=== PATIENT | male | born 1950 | race Caucasian/White ===

== ENCOUNTER 2017-08-17 08:47 | Day surgery (SDC) | payer MEDICARE, OTHER, SELFPAY ==
[2017-08-17 09:02] VITALS: BP 128/82; PULSE 69; RESP 18; TEMP 37; O2SAT 100; BMI 31.1
[2017-08-17] MEDS: SODIUM CHLORIDE 0.9% 1,000 ML 200 ML IV (09:23)
--- NOTE | 2017-08-17 09:35 | PM.HP.1 ---
History of Present Illness Date Patient Seen: 08/17/17 Time Patient Seen: 09:35 Chief complaint: colonoscopy 22531 Narrative: Patient is a gentleman here for screening colonoscopy. Five years ago he had a large polyp resected from a portion of his colon. No family history of colon cancer. Patient History Medical History History of benign neoplasm of colon (Resolved) Surgical History History of low anterior resection of rectum (Inactive) Family & Social History Family History: Reviewed 08/17/17 by Manuel Mariscal MD Social History: household members spouse Meds Home Medications Medication Instructions Recorded Confirmed Type No Known Home Medications 08/17/17 08/17/17 History Allergies Allergy/AdvReac Type Severity Reaction Status Date / Time No Known Drug Allergies Allergy Verified 08/17/17 08:55 Review of Systems Review of Systems All systems reviewed & are unremarkable except as noted in HPI and below Eyes Eyes: Reports requires corrective lenses Comments: Exam Vital Signs (past 8 hours): - 08/17/17 09:02 Temperature 98.6 F Pulse Rate 69 Respiratory Rate 18 Blood Pressure 128/82 H Pulse Oximetry 100 Oxygen Delivery Method Room Air Narrative Exam Narrative: Operative gentleman little overweight no apparent distress. His lungs are clear to auscultation. No rales or rhonchi. Heart regular rate and rhythm without murmur or gallop. Abdomen is protuberant soft nontender without mass. Infraumbilical vertical midline scar noted. No hernias appreciated nor masses. Alert and oriented x3. Assessment & Plan (1) Screening for colon cancer: Problem details: Patient had a low anterior resection for a large unresectable villous adenoma. Current visit: Yes Status: Acute Plan: Assessment/Plan Narrative: Patient here for colonoscopy. Last exam 5 years ago. I have discussed the procedure and the rationale with the patient including risks of bleeding, perforation which would necessitate a major operation, failure to find remove all lesions and the potential to tattoo. They appeared to understand and wished to proceed.
--- NOTE | 2017-08-17 09:44 | PM.PREOP ---
Pre-operative Note Interval Note Pre-op Check: History & Physical exam performed today H&P completed within 30 days and has changed as indicated here:: None ASA Class (for procedural sedation): I
[2017-08-17] MEDS: MIDAZOLAM 5 MG/5 ML VIAL IV (10:12)
[2017-08-17] MEDS: fentaNYL 250 MCG/5 ML INJ IV (10:13)
--- NOTE | 2017-08-17 10:21 | PM.OP.ENDO ---
Operative Date/Time/Diagnoses - Date of procedure: 08/17/17 Time of procedure: 10:22 Pre-op diagnosis: History of large villous adenoma post low anterior resection. Last exam was 5 years ago. Post-op diagnosis: same (A few diverticuli noted) Procedure & Clinicians Study performed: Colonoscopy Same procedure as scheduled: Yes Indications: Screening Surgeon: Manuel Mariscal Procedure Notes SCOAP/Timeout: Performed Procedure in detail: The patient was placed in the left lateral decubitus position and underwent IV sedation directed by the surgeon consisting of fentanyl and Versed. Digital exam was remarkable for being able to feel the anastomosis area. Prostate was flat. The scope was inserted and advanced through the rectum into the sigmoid, descending, transverse, and ascending colon.[I suspect there was very little sigmoid remaining. The anastomosis was clearly delineated. This appears to be a proximal and 2 distal side anastomosis. Both limbs were cannulated and were normal. I did note a few diverticuli in the left colon]. The cecum was reached identified by the ileocecal valve and the appendiceal opening. The ileocecal valve was successfully cannulated. The terminal ileum was normal in appearance. The scope was gradually brought out. No Polyps were found. The scope ultimately was retroflexed in the rectum. The appearance was normal. The scope was removed and the patient tolerated the procedure well Scope withdrawal time: 8.5 min Sedation minutes: 23 Findings: diverticulosis Specimen(s): none sent Complications: none Recommendations: Colonscopy in 5 years Plan for aftercare: Follow up: as needed Disposition: same day surgery
[2017-08-17 10:30] VITALS: BP 119/73; PULSE 59; RESP 16; TEMP 36.7; O2SAT 97
[2017-08-17 10:43] VITALS: BP 105/71; PULSE 59; RESP 18; TEMP 36.7; O2SAT 98
--- NOTE | 2017-08-17 10:58 | SUR.PHASEII ---
pt bypassed pacu awake on arrival. vss, belly soft, no nausea, tolerated fluids, dr foster to bedside- left when ready and left in stable condition.
== END 2017-08-17 10:55 | disposition home or self-care (01) ==
PROVIDERS: PCP Family Medicine; Visit Provider Specialist
PROC: 0DJD8ZZ Inspection of Lower Intestinal Tract, Via Natural or Artificial Opening Endoscopic (ICD-10-PCS; CPT 45378; principal; 2017-08-17 09:45)
DX: Z86.010 Personal history of colon polyps (principal); K57.30 Diverticulosis of large intestine without perforation or abscess without bleeding
CPT/HCPCS: G0105; 99152; 99153; J2250; J3010

== ENCOUNTER → 2017-10-21 10:33 | Outpatient (CLI) | payer MEDICARE, OTHER, SELFPAY ==
--- NOTE | 2017-10-21 | DI.CT.S_ITS ---
PROCEDURE: CT UE RT WO CON INDICATIONS: CHRONIC RIGHT SHOULDER PAIN TECHNIQUE: Noncontrast 1-1.5 mm thick sections acquired from the acromioclavicular joint to the inferior scapula, with coronal and sagittal reformatting. COMPARISON: None. FINDINGS: Image quality: Diagnostic. Bones: There are severe degenerative changes of the right glenohumeral joint with prominent joint space narrowing, bony remodeling, subchondral sclerosis, subchondral cystic change, and developing prominent inferior marginal osteophytes. Superior migration of the humeral head with respect to the glenoid is identified with near pseudoarticulation of the humeral head with the undersurface of the acromion. Moderate degenerative changes of the acromioclavicular joint are present. No suspicious osseous lesions are identified involving the imaged osseous structures of the right shoulder were included portions of the right thorax. Soft tissues: The soft tissues of the right shoulder appeared be within normal limits. No significant atrophy is appreciated involving the rotator cuff muscles. There likely is prominent thinning of the supraspinatus muscle, given prominent narrowing of the space between the humeral head and the acromion. There is a moderate sized glenohumeral joint effusion. No axillary lymphadenopathy is evident. The imaged portions of the right chest are within normal limits. IMPRESSION: 1. Severe degenerative changes of the glenohumeral joint. 2. Moderate degenerative changes of the acromioclavicular joint. 3. Glenohumeral joint effusion. 4. Prominent narrowing of the acromiohumeral is suspicious for supraspinatus injury. There is no corresponding atrophy of the supraspinatus muscle. MRI may be helpful for better characterization, if indicated. Dictated by: Aden Mcdonald M.D. on 10/21/2017 at 10:11 Approved by: Aden Mcdonald M.D. on 10/21/2017 at 10:15
== END ==
PROVIDERS: PCP Family Medicine; Visit Provider Orthopaedic Surgery
DX: M19.011 Primary osteoarthritis, right shoulder (principal); M25.511 Pain in right shoulder; M25.411 Effusion, right shoulder; G89.29 Other chronic pain
CPT/HCPCS: 73200

== ENCOUNTER → 2017-11-10 10:41 | Outpatient (CLI) | payer MEDICARE, OTHER, SELFPAY ==
[2017-11-10 10:50] LABS: Bacteria Urine None Seen; RBC Urine None Seen (0-5/HPF); WBC Urine None Seen (0-5/HPF)
[2017-11-10 11:43] LABS: Add Manual Diff / Slide Review NO; Basophils Percent Auto 0.5 % (0-2); Eosinophils Percent Auto 1.6 % (2-4); Hematocrit 45.2 % (41-53); Hemoglobin 15.5 g/dL (13.5-17.5); Lymphocytes Percent Auto 33.3 % (25-40); Mean Corpuscular HGB Conc 34.4 % (30-36); Mean Corpuscular Hemoglobin 31.5 PG (26-34); Mean Corpuscular Volume 91.5 fL (80-100); Monocytes Percent Auto 11.2 % (3-14); Neutrophils Absolute Auto 3200 /uL (3000-5900); Neutrophils Percent Auto 53.4 % (50-75); Platelet Count 218 X10^3/uL (150-400); Red Blood Cell Count 4.93 X10^6/uL (4.5-5.9); Red Cell Distribution Width 13.5 % (11.6-14.8); White Blood Cell Count 6.1 X10^3/uL (4.5-11.0)
[2017-11-10 11:46] LABS: Hemoglobin A1C% w Est Avg Glu 5.4 % (4.0-6.0)
[2017-11-10 11:59] LABS: Blood Urea Nitrogen 18 mg/dL (9-20); Calcium 8.7 mg/dL (8.4-10.2); Carbon Dioxide 30 mmol/L (22-32); Chloride 102 mmol/L (98-107); Estimated Glomerular Filt Rate > 60.0 mL/min (>60); Glucose 92 mg/dL (80-110); HEMOLYSIS < 15 (0-50); Potassium 4.3 mmol/L (3.4-5.1); Sodium 141 mmol/L (137-145)
[2017-11-10 12:05] LABS: Transferrin 244 mg/dL (206-381)
[2017-11-10 12:06] LABS: Appearance Urine UA CLEAR; Bilirubin Urine UA NEGATIVE (NEGATIVE); Color Urine UA YELLOW; Glucose Urine UA NEGATIVE (Normal); Ketones Urine UA NEGATIVE (NEGATIVE); Leukocyte Esterase Urine UA NEGATIVE (NEGATIVE); Nitrite Urine UA Negative (Negative); Occult Blood Urine UA NEGATIVE (Negative); Protein Urine UA NEGATIVE (Negative); Specific Gravity Urine UA <=1.005 (1.000-1.035); Urobilinogen Urine UA 0.2 E.U./dL (0.2); pH Urine UA 6.5 (4.5-8.0)
[2017-11-10 12:16] LABS: Culture Indicated Urine Cult Not Indicated; Urine Comments Microscopic Normal
== END ==
PROVIDERS: Family Provider Orthopaedic Surgery; PCP Family Medicine; Visit Provider Family Medicine
DX: Z01.818 Encounter for other preprocedural examination (principal); M25.511 Pain in right shoulder; D64.9 Anemia, unspecified; R73.9 Hyperglycemia, unspecified
CPT/HCPCS: 36415; 80048; 81001; 83036; 84466; 85025; 93005

== ENCOUNTER 2017-12-17 06:05 | Inpatient (IN) | payer MEDICARE, OTHER, SELFPAY ==
[2017-12-01 08:40] VITALS: BMI 31.7
[2017-12-17] VITALS (15 sets, daily range): BP systolic 99–139; BP diastolic 60–81; PULSE 60–68; RESP 7–24; TEMP 35.9–36.7; O2SAT 93–98; BMI 31.7
[2017-12-17] MEDS: ACETAMINOPHEN 325 MG TABLET 975 MG PO ×3 (06:50→20:29)
[2017-12-17] MEDS: LACTATED RINGERS 1,000 ML 42 ML IV (06:50)
[2017-12-17] MEDS: PREGABALIN 75 MG CAPSULE PO (06:50)
[2017-12-17] MEDS: CELECOXIB 200 MG CAPSULE PO (06:50)
--- NOTE | 2017-12-17 07:04 | DI.RAD.S_ITS ---
PROCEDURE: XR SHOULDER RT 1V INDICATIONS: prosthesis placement TECHNIQUE: 1 views of the shoulder were acquired. COMPARISON: [facility], CT, CT UE RT WO CON, 10/21/2017, 10:42. FINDINGS: Bones: Postoperative change is seen, with right shoulder arthroplasty. No acute abnormality is seen. Age-appropriate bony degenerative changes are seen. Soft tissues: No suspicious soft tissue calcifications. The visualized lung demonstrates an unremarkable appearance. IMPRESSION: Normal postoperative examination. Dictated by: Doroteo Ch M.D. on 12/17/2017 at 10:19 Approved by: Doroteo Ch M.D. on 12/17/2017 at 10:20
--- NOTE | 2017-12-17 07:43 | PC.NURSE ---
Day shift: Pt not on the AC unit at this time.
--- NOTE | 2017-12-17 07:45 | PM.PREOP ---
Pre-operative Note Interval Note Pre-op Check: Yes History & Physical Reviewed by Physician and Yes Exam Performed Changes: No
[2017-12-17] MEDS: MIDAZOLAM 2 MG/2 ML VIAL IV (07:46)
[2017-12-17] MEDS: fentaNYL 100 MCG/2 ML INJ 50 MCG IV ×4 (07:46→11:01)
--- NOTE | 2017-12-17 07:53 | P.OP_ITS ---
Operative Date/Time/Diagnoses Date of procedure: 12/17/17 Time of procedure: 10:05 Pre-op diagnosis: Right shoulder osteoarthritis Post-op diagnosis: same Procedure & Clinicians Procedure: Right total shoulder replacement Same procedure as scheduled: Yes Indications: The patient has had progressively worsening right shoulder pain with radiographic changes consistent with arthritis. Non-operative management has failed and the patient has requested total shoulder replacement. The risks, benefits and alternatives to surgery were discussed with the patient prior to proceeding. Risks discussed included, but were not limited to, failure to relieve pain, stiffness, infection, nerve damage, deep venous thrombosis, pulmonary embolism, stroke, coma, heart attack, permanent paralysis and , as well as the potential need for eventual revision of the prosthetic. Surgeon: Hermann Wheeler Housekeeping Manager: Tricia Schaefer Click Yes if Unassisted: No Anesthesia Type: General, Peripheral nerve block and Local Operative Notes Findings: Severe osteoarthritis with large osteophytes and biconcave Beckman B2 glenoid. Closure Type: primary Specimen(s): none sent Implants & Drains: Implants used in this procedure were manufactured by the [employer] and included a size 14 short stem humerus with a neutral neck and a 50 mm x 20 mm neutral humeral head. In addition a 50 mm all- polyethylene pegged E +glenoid was used. Applied: drain(s) and implant(s) Estimated Blood Loss (mL): 150 Blood products transfused: none Procedure in detail: The patient was seen in the pre-operative area, where the patient identified the right shoulder as the operative site and this was marked with my initials. The patient received pre-operative antibiotics, underwent an interscalene block, and was taken to the operating room and placed on the operative table in the supine position. After satisfactory anesthesia, a full ? time out? was performed. The patient was repositioned in the ?beach chair? position using a dedicated positioner. All pressure points were well padded, and the knees were slightly bent to prevent tension on the sciatic nerves. The right arm was prepared from the fingers to the base of the neck with ChloroPrep in the usual fashion and draped through sterile drapes. An approximately 15 cm incision was created, starting at the clavicle above the coracoid process and extended towards the deltoid insertion. The deltopectoral interval was used to access the shoulder. The cephalic vein was taken medially. A self retaining retractor was placed. The upper centimeter of the pectoralis major tendon was released. The ?three sisters? were identified and cauterized. The axillary nerve was palpated and protected throughout the case. The biceps was released from its groove and tenodesed over the top of the pectoralis major tendon. The subscapularis was released from the lesser tuberosity with a subscapularis peel and tagged for later repair. The shoulder was dislocated and a cutting guide was used for the proximal humeral osteotomy in 30 degrees of retroversion. A starter reamer was used followed by the cylindrical reamers. This continued in larger sizes in till cortical bite was achieved. Sequential broaching was then performed until a line to line fit with the reamer occurred. A proximal humeral protector was then placed. We then removed the self-retaining retractor and placed retractors to access the glenoid. The subscapularis was released with a ?360 degree release? with care being taken to protect the axillary nerve with the inferior portion of this procedure. The remnant of labrum and biceps stump were removed. The appropriate size reamer was chosen with the glenoid sizer, and the guide pin placed. The glenoid was appropriately reamed, with more reaming of the anterior rim to normalize the B2 glenoid.. The guide for the peripheral holes was used and the center hole enlarged. The trial glenoid was placed with good stability. We then cemented the final implant into place after irrigating the peg holes and drying them with thrombin-soaked Gelfoam. We returned our attention to the humerus, a trial humeral head was applied and a trial reduction performed. Stability was checked with 50% posterior translation with spontaneous reduction, 45? external rotation at the side with the subscapularis held on the repaired position and internal rotation to 70? in the ?scarecrow position?. This was felt to be satisfactory and the appropriate implants were opened. Five holes were drilled along the humeral osteotomy and #2 TiCron sutures placed for eventual subscapularis repair. The humeral prosthetic was impacted into the humerus. The humeral head was applied when the stem was still slightly proud and impacted to both seat the head and fully seat the stem. The joint was relocated one final time. The joint was irrigated and the subscapularis repaired to the previously placed sutures using Danny-Wallace sutures. The top of the subscapularis was closed to the leading edge of the supraspinatus with a figure of 8 #2 TiCron to close the rotator interval. A deep drain was placed and brought out supero-laterally. The deltopectoral interval was closed with interrupted 0 Vicryl. The subcutaneous layer was closed with 3-0 Vicryl, and the skin with a running 3-0 V-Lock suture and SteriStrips. An Aquacel Ag dressing was applied, the patient?s arm was placed in a sling, and the patient was taken to recovery having tolerated the procedure well. Complications: none Condition: stable Disposition: PACU Plan for aftercare: The patient will be maintained on a standard total shoulder replacement protocol with passive range of motion limited to 90 degrees forward flexion, 0 degrees external rotation at the side, 0 degrees abduction and internal rotation to the body. The patient will receive aspirin and sequential compression devices for DVT prophylaxis. The patient will be discharged home when safe for the home environment, likely tomorrow.
--- NOTE | 2017-12-17 08:04 | SUR.PREOP ---
Block start time [0746] . Monitoring initiated and maintained throughout procedure. Oxygen and medications given per anesthesiologist instructions. Patient remained stable throughout procedure, no adverse reactions noted. Block end time [0804].
--- NOTE | 2017-12-17 08:47 | SUR.OPER ---
Beach chair with Skip/Elyssa shoulder positioner. Lower body on padded OR bed. Head in foam padded head cradle, secured with straps. Non-operative arm secured <90 degrees abduction. Pillow under knees. Safety belt at thigh. Cloth tape over blanket over lower legs.
--- NOTE | 2017-12-17 08:48 | SUR.OPER ---
Beach chair with Schlein shoulder positioner. Lower body on padded OR bed. Head in foam padded head cradle, secured with straps. Non-operative arm secured <90 degrees abduction with strap. Pillow under knees. Safety belt at thigh. Cloth tape over blanket over lower legs.
[2017-12-17] MEDS: CEFAZOLIN 2 GM/100 ML FROZ.PIGGY IV ×2 (10:02→18:00)
[2017-12-17] MEDS: THROMBIN (BOVINE) 5,000 UNIT VIAL 5000 UNIT TOP (10:02)
[2017-12-17] MEDS: BUPIVACAINE 0.5% W/ EPI (PF) VIAL 30 ML INJ (10:06)
--- NOTE | 2017-12-17 11:01 | SUR.PHASEI ---
Report called to Krystin
--- NOTE | 2017-12-17 11:26 | SUR.PHASEI ---
Pt transferred to the floor. Report to Krystin. VS stable. IV saline locked. Inessa cdi. HV patent and emptied. Sling in place. Belongings bag x2 and cpap with patient. Dr. Wheeler notified pt c/o forearm pain, no new orders.
[2017-12-17] MEDS: LACTATED RINGERS 1,000 ML 125 ML IV ×2 (11:42→19:38)
--- NOTE | 2017-12-17 16:34 | PT.IIE ---
Addendum entered and electronically signed by Katie Shanks PT 12/17/17 18:41: This is to certify that I have reviewed this documentation and POC Original Note: Current Diagnoses Primary osteoarthritis, right shoulder (12/17/17) Surgery Performed Operation Date: 12/17/17 07:45 Actual Procedures p Total Shoulder Arthroplasty(Right) - Hermann Wheeler MD Surgical History (Last Updated 12/01/17 @ 09:08 by Roberta Richardson, RN) History of partial colectomy (Resolved 2010) Hx of cholecystectomy (Resolved 1999) Hx of appendectomy (Acute) Hx of left knee surgery (Acute) S/P right knee arthroscopy (Acute) History of low anterior resection of rectum (Inactive) Medical History (Last Updated 12/01/17 @ 09:08 by Roberta Richardson RN) Right shoulder pain (Chronic) Tubulovillous adenoma of colon (Resolved ~2010) Rosacea (Chronic 1994) Obstructive sleep apnea (Chronic 2001) Kidney stones (Resolved ~2015) Colon polyps (Acute ~2010) History of benign neoplasm of colon (Resolved) Physical Therapy Inpatient Evaluation/Re-Eval M1 PT/OT-IP Prior Functional Status Start: 12/17/17 17:06 Freq: NEEDED Status: Active Protocol: Document 12/17/17 16:34 (Rec: 12/17/17 17:38 [id number]) Medical Review Prior Functional Status Medical History Reviewed Yes Communication no deficits noted. Mobility and Gait Previous to shoulder surgery, pt reports independence with all mobilities. He describes himself as an avid hiker. Social History Household Members spouse Living Arrangements House Number of Floors (Floors) One Floor Number of Stairs To Enter/Railing? 1 step to enter Home Environment Standard Height Toilet Walk in Shower Built-In Shower Seat Home Equipment Hand Held Shower Employment Status Retired Additional Social History Comment Pt's Adrian will be availiable for 24/ assist. Ascending from toilet, there is a L ledge pt can push from if needed. M2 PT-IP Current Condition Start: 12/17/17 17:06 Freq: NEEDED Status: Active Protocol: Document 12/17/17 16:34 (Rec: 12/17/17 17:38 [id number]) Physical Therapy Current Condition Current Condition Evaluation Date 12/17/17 Treatment Diagnosis R TSA; difficulty walking. Onset Date 12/17/17 Precautions Shoulder Precautions Sling PROM Internal Rotation to Body No External Rotation No Abduction Forward Flexion to 90 degrees Pendulums Weight Bearing Status Weight Bearing Status Non-Weight Bearing Allowed Weight Bearing Amount (enter % R shoulder non weight bearing. or #) (%) M3 PT-IP Subjective Start: 12/17/17 17:06 Freq: NEEDED Status: Active Protocol: Document 12/17/17 16:34 (Rec: 12/17/17 17:38 [id number]) Subjective Physical Therapy Visit Type Type Initial Evaluation Visit Start Time 16:34 Visit Stop Time 17:06 Total Visit Minutes 32 Number of GALVANOMETER ASSEMBLER Visits 0 Physical Therapy Visit Comments Patient Comments Pt agreeable to mobilize with PT. Patient Goals Pt plans to d/c home with for assist. Therapy Pain Assessment Pain Present Pain Present Denied Pain M4 PT-IP Mobility and Gait Start: 12/17/17 17:06 Freq: NEEDED Status: Active Protocol: Document 12/17/17 16:34 (Rec: 12/17/17 17:38 [id number]) PT-Bed Mobility Assessment Supine to Sit Supine to Sit Independent Sit to Supine Sit to Supine Independent Scooting Scooting to Edge of Bed Independent PT-Transfer Assessment Sit to and From Stand Sit to and from Stand Standby Assistance Equipment Transfer Assistive Device None Gait Belt Orthotic/Prosthetic Devices or Brace: Yes Transfers Transfer Destination Bed Comments Mobility Comments Resting vitals 115/56, O2 98%, HR 62. Pt denies dizziness or nasea. Pt performs supine > sit indep and able to maintain precautions easily. Sit <> stand SBA no AD with L UE to rise. Standing march in place 20 steps completed SBA and no AD and pt continues to deny dizziness. Gait Assessment Gait Gait Assistance Required: Standby Assistance Distance (Feet) 200 Able to Maintain Weight Bearing Status Yes During Gait Assistive Devices Assistive Device Gait Belt Orthotic/Prosthetic Devices or Brace: Yes Gait Deviations General Gait Pattern Within Normal Limits Factors Limiting Gait Function Factors Limiting Gait Function Decreased Activity Tolerance Decreased Sensation Limited Range of Motion Comments Gait Comments Pt ambulated 200 ft SBA no AD. Gait within normal limits. No c/o of dizziness or nausea. Stair Climbing Assessment Evaluation Level of Assist On Stairs Standby Assistance Technique/Endurance Stair Climbing Direction Ascend and Descend Number of Steps Climbed 1 Query Text: Stair Climbing Set # Repetitions (reps) 2 Comments Stair Climbing Comments Pt able to up/down 1 platform step x2 SBA no AD, no LOB. PT-Balance Assessment Sitting Balance and Reactions Static Sitting Balance Ability Good Dynamic Sitting Balance Ability Good Standing Balance and Reactions Static Standing Balance Ability Good Dynamic Standing Balance Ability Good Device Used gait belt M5 PT-IP Objective Assessments Start: 12/17/17 17:06 Freq: NEEDED Status: Active Protocol: Document 12/17/17 16:34 (Rec: 12/17/17 17:38 [id number]) Orientation Orientation/Cognition Level of Alertness Alert Orientation Name Birthday Place Situation Language Function Ability No Deficits Noted Safety Awareness Decreased Safety Awareness Gross Range of Motion Upper Extremity ROM Assessment Right Impaired Strength Lower Extremity Strength Assessment Within Functional Limits Sensation Assessment Sensation Gross Sensation Right UE Impaired Sensation Description Numbness [place] Comments Sensation Comments Pt still describes numbness and tingling over the dorsum of thumb and forearm. M6 PT-IP Treatment Start: 12/17/17 17:06 Freq: NEEDED Status: Active Protocol: Document 12/17/17 16:34 (Rec: 12/17/17 17:38 [id number]) Physical Therapy Treatment Education Education Provided Precautions Weight Bearing Status Post-Op Packet Safety M7 PT-IP Assessment and Plan Start: 12/17/17 17:06 Freq: NEEDED Status: Active Protocol: Document 12/17/17 16:34 (Rec: 12/17/17 17:38 [id number]) PT Summary Assessment and Plan Potential Rehabilitation Potential Good Status of Condition at Evaluation Stable Summary Impairments ROM Strength Sensation Bed Mobility Transfers Gait Activity Tolerance Progress Towards Goals Progressing Toward Goals Assessment Summary Pt s/p R TSA with impaired mobility/difficulty walking. He was able to complete 200 ft ambulation SBA with no AD as well as up/down 1 platform step x2 SBA no AD. He denied dizziness or nausea this session. Recommend d/c to home with assist and f/u OP PT when pt is medically stable. Goals Bed Mobility Goal Independent Transfer Goal Independent Gait Goal Independent Gait Distance 300 Other Goals up/down platform step indep and no AD Days to Meet Goals 300 Frequency of Treatment Frequency Of Treatment Twice a Day Treatment Plan Physical Therapy Treatment Plan Bed Mobility Training Transfer Training Gait Training Therapeutic Exercise Balance Retraining Post Op Education Discharge Planning Hot or Cold Pack Neuromuscular Re-ed Coordination Retraining Manual Therapy Other Recommendations and Next Treatment ambulation and stair climbing. Focus Caregiver training Recommendations To Nursing Amount of Assist Needed Standby Assistance Discharge Recommendations PT Discharge Recommendations Home with Assistance Outpatient PT
[2017-12-17] MEDS: ASPIRIN EC 81 MG TABLET PO (20:30)
[2017-12-17] MEDS: OXYCODONE IR 5 MG TABLET PO (20:30)
[2017-12-17] MEDS: DOCUSATE 100 MG CAPSULE PO (20:30)
[2017-12-18] MEDS: OXYCODONE IR 5 MG TABLET PO ×3 (00:07→07:49)
[2017-12-18 01:05] VITALS: BP 112/73; PULSE 67; RESP 18; TEMP 36.7; O2SAT 98
[2017-12-18] MEDS: CEFAZOLIN 2 GM/100 ML FROZ.PIGGY IV (01:48)
[2017-12-18 03:45] VITALS: BP 133/67; PULSE 63; RESP 18; TEMP 36.4; O2SAT 97
[2017-12-18 05:57] LABS: Hematocrit 39.6 % (41-53); Hemoglobin 13.2 g/dL (13.5-17.5); Mean Corpuscular HGB Conc 33.4 % (30-36); Mean Corpuscular Volume 92.9 fL (80-100); Platelet Count 209 X10^3/uL (150-400); Red Blood Cell Count 4.26 X10^6/uL (4.5-5.9); Red Cell Distribution Width 13.5 % (11.6-14.8); White Blood Cell Count 17.2 X10^3/uL (4.5-11.0)
[2017-12-18 07:35] VITALS: BP 121/73; PULSE 66; RESP 24; TEMP 36.6; O2SAT 97
[2017-12-18] MEDS: ACETAMINOPHEN 325 MG TABLET 975 MG PO (08:41)
[2017-12-18] MEDS: POLYETHYLENE GLYCOL 3350 17 GM POWD.PACK PO (08:41)
[2017-12-18] MEDS: ASPIRIN EC 81 MG TABLET PO (08:41)
[2017-12-18] MEDS: DOCUSATE 100 MG CAPSULE PO (08:41)
--- NOTE | 2017-12-18 09:04 | PM.DS.1 ---
History of Present Illness Date Patient Seen: 12/18/17 Time Patient Seen: 09:04 Chief complaint: total shoulder arthroplasty right [id number] Narrative: Details of the patient's H&P can be found electronic chart. Discharge Providers Date of admission: 12/17/17 06:05 Primary care physician: Esdras Fregoso MD Consults: 12/17/17 11:22 Consult to Discharge Planning Routine Comment: Consult to Occupational Therapy Evaluate & Treat Comment: post op total shoulder Physician Instructions: Evaluate and treat Consult to Physical Therapy Evaluate & Treat Comment: Physician Instructions: Evaluate and Treat Consult to Respiratory Therapy Evaluate & Treat Comment: Pendulums. PROM 90 FF, 0 ER, 0 Abd, IR to body Physician Instructions: Evaluate and treat 12/17/17 11:25 Consult to Respiratory Therapy Evaluate & Treat Comment: Physician Instructions: Evaluate and treat Discharge provider: Clara Garland PA-C Discharge Date: 12/18/17 Summary Discharge Diagnosis: Right shoulder osteoarthritis Hospital Course: Patient was admitted taken operating room he had a right total shoulder replacement with Dr. Wheeler. He recovered well and was transferred to the floor for further care. postop day 1 patient was ambulating well, pain was under control and he was urinating without difficulty. He was ready to be discharged home. His white cell count this morning was 17.2 but patient is afebrile 97.8 F and denies any issues with difficulty urination. A urinalysis were performed before he leaves today and if positive antibiotics will be called in for him. he has his postop follow-up set up already and also postoperative physical therapy has been set up for him. Status at Discharge Cognitive/behavioral status at discharge: Alert and orient x3 Functional status at discharge: independent ambulation Overall status at discharge: patient is progressing back to baseline Time Spent with Patient Less than 30 minutes Exam Vital Signs (past 8 hours): - 12/18/17 01:05 12/18/17 03:45 12/18/17 07:35 Temperature 98.0 F 97.5 F L 97.8 F Pulse Rate 67 63 66 Respiratory Rate 18 18 24 Blood Pressure 112/73 133/67 121/73 Pulse Oximetry 98 97 97 Oxygen Delivery Method Room Air Narrative Exam Narrative: patient in bed. Alert orient x3. Appears comfortable. Right arm in sling. Hemovac drain in. Aqua zenaida dressing clean dry and intact. Moderate swelling in right shoulder. 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 Can make a closed fist. Neurovascular status intact. Bilateral calves soft and nontender. Objective Labs Result Diagrams: 12/18/17 05:28 Labs: Laboratory Results - last 24 hr 12/18/17 05:28 WBC 17.2 H RBC 4.26 L Hgb 13.2 L Hct 39.6 L MCV 92.9 MCH 31.0 MCHC 33.4 RDW 13.5 Plt Count 209 Discharge Plan Discharge Plan Patient Disposition: Home Discharge comment: Sling for 6 weeks. Discharge Med Rec/Prescriptions Prescriptions: New acetaminophen 325 mg Tablet 975 mg PO TID Qty: 0 RF: 0 oxycodone 5 mg Tablet 5 mg PO Q4H PRN (Reason: Pain, Moderate (4-6)) Qty: 0 RF: 0 Follow up/Referrals: Hermann Wheeler MD [Family Provider] - ( Follow-up as scheduled time and date. Contact office with any issues or concerns.) Provider Discharge Instructions Diet: Diet as Tolerated Activity: standard total shoulder replacement protocol with passive range of motion limited to 90 degrees forward flexion, 0 degrees external rotation at the side, 0 degrees abduction and internal rotation to the body Cold/Heat Therapy: Apply ice to the extremity as needed for swelling and inflammation. Skin/Wound/Dressing Care Report to your healthcare provider any signs of infection, such as:: chills, fever, increased pain and unusual drainage Dressing: Keep dressing clean dry and intact. may shower. Visit Report/Discharge Packet Instructions: DI for Shoulder Replacement Discharge Data Primary Care Provider: Esdras Fregoso Attending Provider: Hermann Wheeler Admit Date/Time: 12/17/17 06:05 Quality VTE Deep Vein Thrombosis/Pulmonary Embolism Present on Admission: No
--- NOTE | 2017-12-18 09:07 | P.DS_ITS ---
History of Present Illness Date Patient Seen: 12/18/17 Time Patient Seen: 09:04 Chief complaint: total shoulder arthroplasty right [id number] Narrative: Details of the patient's H&P can be found electronic chart. Discharge Providers Date of admission: 12/17/17 06:05 Primary care physician: Esdras Fregoso MD Consults: 12/17/17 11:22 Consult to Discharge Planning Routine Comment: Consult to Occupational Therapy Evaluate & Treat Comment: post op total shoulder Physician Instructions: Evaluate and treat Consult to Physical Therapy Evaluate & Treat Comment: Physician Instructions: Evaluate and Treat Consult to Respiratory Therapy Evaluate & Treat Comment: Pendulums. PROM 90 FF, 0 ER, 0 Abd, IR to body Physician Instructions: Evaluate and treat 12/17/17 11:25 Consult to Respiratory Therapy Evaluate & Treat Comment: Physician Instructions: Evaluate and treat Discharge provider: Clara Garland PA-C Discharge Date: 12/18/17 Summary Discharge Diagnosis: Right shoulder osteoarthritis Hospital Course: Patient was admitted taken operating room he had a right total shoulder replacement with Dr. Wheeler. He recovered well and was transferred to the floor for further care. postop day 1 patient was ambulating well, pain was under control and he was urinating without difficulty. He was ready to be discharged home. His white cell count this morning was 17.2 but patient is afebrile 97.8 F and denies any issues with difficulty urination. A urinalysis were performed before he leaves today and if positive antibiotics will be called in for him. he has his postop follow- up set up already and also postoperative physical therapy has been set up for him. Status at Discharge Cognitive/behavioral status at discharge: Alert and orient x3 Functional status at discharge: independent ambulation Overall status at discharge: patient is progressing back to baseline Time Spent with Patient Less than 30 minutes Exam Vital Signs (past 8 hours): - 12/18/17 01:05 12/18/17 03:45 12/18/17 07:35 Temperature 98.0 F 97.5 F L 97.8 F Pulse Rate 67 63 66 Respiratory Rate 18 18 24 Blood Pressure 112/73 133/67 121/73 Pulse Oximetry 98 97 97 Oxygen Delivery Method Room Air Narrative Exam Narrative: patient in bed. Alert orient x3. Appears comfortable. Right arm in sling. Hemovac drain in. Aqua zenaida dressing clean dry and intact. Moderate swelling in right shoulder. 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 Can make a closed fist. Neurovascular status intact. Bilateral calves soft and nontender. Objective Labs Result Diagrams: 12/18/17 05:28 Labs: Laboratory Results - last 24 hr 12/18/17 05:28 WBC 17.2 H RBC 4.26 L Hgb 13.2 L Hct 39.6 L MCV 92.9 MCH 31.0 MCHC 33.4 RDW 13.5 Plt Count 209 Discharge Plan Discharge Plan Patient Disposition: Home Discharge comment: Sling for 6 weeks. Discharge Med Rec/Prescriptions Prescriptions: New acetaminophen 325 mg Tablet 975 mg PO TID Qty: 0 RF: 0 oxycodone 5 mg Tablet 5 mg PO Q4H PRN (Reason: Pain, Moderate (4-6)) Qty: 0 RF: 0 Follow up/Referrals: Hermann Wheeler MD [Family Provider] - ( Follow-up as scheduled time and date. Contact office with any issues or concerns.) Provider Discharge Instructions Diet: Diet as Tolerated Activity: standard total shoulder replacement protocol with passive range of motion limited to 90 degrees forward flexion, 0 degrees external rotation at the side, 0 degrees abduction and internal rotation to the body Cold/Heat Therapy: Apply ice to the extremity as needed for swelling and inflammation. Skin/Wound/Dressing Care Report to your healthcare provider any signs of infection, such as:: chills, fever, increased pain and unusual drainage Dressing: Keep dressing clean dry and intact. may shower. Visit Report/Discharge Packet Instructions: DI for Shoulder Replacement Discharge Data Primary Care Provider: Esdras Fregoso Attending Provider: Hermann Wheeler Admit Date/Time: 12/17/17 06:05 Quality VTE Deep Vein Thrombosis/Pulmonary Embolism Present on Admission: No
--- NOTE | 2017-12-18 09:23 | PC.NURSE ---
Pt alert and oriented, feeling fair and ready to go home. huskies play today. Pt set up for b'fast. Sling intact, IV intact. Pt waiting on ortho to write d/c orders. Pt wanting to d/c as soon as Ortho rounds. 09:15 IV and Hemovac d/c'd per orders. See D/C orders.
--- NOTE | 2017-12-18 09:45 | PT.IPTN ---
Current Diagnoses Primary osteoarthritis, right shoulder (12/17/17) Surgery Performed Operation Date: 12/17/17 07:45 Actual Procedures p Total Shoulder Arthroplasty(Right) - Hermann Wheeler MD Physical Therapy Treatment Note M2 PT-IP Current Condition Start: 12/17/17 17:06 Freq: NEEDED Status: Discharge Protocol: Document 12/17/17 16:34 (Rec: 12/17/17 17:38 [id number]) Physical Therapy Current Condition Current Condition Evaluation Date 12/17/17 Treatment Diagnosis R TSA; difficulty walking. Onset Date 12/17/17 Precautions Shoulder Precautions Sling PROM Internal Rotation to Body No External Rotation No Abduction Forward Flexion to 90 degrees Pendulums Weight Bearing Status Weight Bearing Status Non-Weight Bearing Allowed Weight Bearing Amount (enter % R shoulder non weight bearing. or #) (%) M3 PT-IP Subjective Start: 12/17/17 17:06 Freq: NEEDED Status: Discharge Protocol: Document 12/18/17 09:45 AB (Rec: 12/18/17 10:34 AB [id number]) Subjective Physical Therapy Visit Type Type Treatment Note Visit Start Time 09:45 Visit Stop Time 09:55 Total Visit Minutes 10 Number of SCAFFOLD WORKER Visits 0 Physical Therapy Visit Comments Patient Comments pt agreeable to do PT Therapy Pain Assessment Pain When Pain Assessed At Rest Pain Present Pain Present Pain Reported Location Rt Forearm Intensity 2 Scale Used Numeric (1 - 10) Pain Management Techniques Timing of Activity with Medications M4 PT-IP Mobility and Gait Start: 12/17/17 17:06 Freq: NEEDED Status: Discharge Protocol: Document 12/18/17 09:45 AB (Rec: 12/18/17 10:34 AB [id number]) Gait Assessment Gait Gait Assistance Required: Standby Assistance Distance (Feet) 200 Able to Maintain Weight Bearing Status Yes During Gait Assistive Devices Assistive Device Gait Belt Orthotic/Prosthetic Devices or Brace: Yes Factors Limiting Gait Function Factors Limiting Gait Function Limited Range of Motion Comments Gait Comments sling on RUE Stair Climbing Assessment Evaluation Level of Assist On Stairs Standby Assistance Devices Stair Climbing Assistive Devices None Technique/Endurance Stair Climbing Direction Ascend and Descend Stair Climbing Technique Step to Step Number of Steps Climbed 1 Query Text: Comments Stair Climbing Comments pt completed up/down platform step SBA M5 PT-IP Objective Assessments Start: 12/17/17 17:06 Freq: NEEDED Status: Discharge Protocol: Document 12/17/17 16:34 (Rec: 12/17/17 17:38 [id number]) Orientation Orientation/Cognition Level of Alertness Alert Orientation Name Birthday Place Situation Language Function Ability No Deficits Noted Safety Awareness Decreased Safety Awareness Gross Range of Motion Upper Extremity ROM Assessment Right Impaired Strength Lower Extremity Strength Assessment Within Functional Limits Sensation Assessment Sensation Gross Sensation Right UE Impaired Sensation Description Numbness [place] Comments Sensation Comments Pt still describes numbness and tingling over the dorsum of thumb and forearm. M6 PT-IP Treatment Start: 12/17/17 17:06 Freq: NEEDED Status: Discharge Protocol: Document 12/17/17 16:34 (Rec: 12/17/17 17:38 [id number]) Physical Therapy Treatment Education Education Provided Precautions Weight Bearing Status Post-Op Packet Safety M7 PT-IP Assessment and Plan Start: 12/17/17 17:06 Freq: NEEDED Status: Discharge Protocol: Document 12/18/17 09:45 AB (Rec: 12/18/17 10:34 AB [id number]) PT Summary Assessment and Plan Potential Rehabilitation Potential Good Summary Impairments Pain Strength Balance Transfers Gait Progress Towards Goals Progressing Toward Goals Assessment Summary pt requiring SBA with mobility and plans to go home today with spouse to assist him. Goals Bed Mobility Goal Independent Transfer Goal Independent Gait Goal Independent Gait Distance 300 Other Goals up/down platform step indep and no AD Days to Meet Goals 300 Frequency of Treatment Frequency Of Treatment Twice a Day Treatment Plan Physical Therapy Treatment Plan Bed Mobility Training Transfer Training Gait Training Therapeutic Exercise Balance Retraining Post Op Education Discharge Planning Hot or Cold Pack Neuromuscular Re-ed Coordination Retraining Manual Therapy Other Recommendations and Next Treatment ambulation and stair climbing. Focus Caregiver training Recommendations To Nursing Amount of Assist Needed Standby Assistance Discharge Recommendations PT Discharge Recommendations Home with Assistance Outpatient PT
[2017-12-18 10:48] LABS: Appearance Urine UA CLEAR; Bilirubin Urine UA NEGATIVE (NEGATIVE); Color Urine UA YELLOW; Glucose Urine UA NEGATIVE (Normal); Ketones Urine UA NEGATIVE (NEGATIVE); Leukocyte Esterase Urine UA NEGATIVE (NEGATIVE); Nitrite Urine UA NEGATIVE (Negative); Occult Blood Urine UA NEGATIVE (Negative); Protein Urine UA NEGATIVE (Negative); Urobilinogen Urine UA 0.2 E.U./dL (0.2); pH Urine UA 6.5 (4.5-8.0)
--- NOTE | 2017-12-18 11:00 | OT.IP.EVAL ---
Current Diagnoses Primary osteoarthritis, right shoulder (12/17/17) Surgery Performed Operation Date: 12/17/17 07:45 Actual Procedures p Total Shoulder Arthroplasty(Right) - Hermann Wheeler MD Past Medical History (Last Updated 12/01/17 @ 09:08 by Roberta Richardson, RN) Right shoulder pain (Chronic) Tubulovillous adenoma of colon (Resolved ~2010) Rosacea (Chronic 1994) Obstructive sleep apnea (Chronic 2001) Kidney stones (Resolved ~2015) Colon polyps (Acute ~2010) History of benign neoplasm of colon (Resolved) Surgical History (Last Updated 12/01/17 @ 09:08 by Roberta Richardson RN) History of partial colectomy (Resolved 2010) Hx of cholecystectomy (Resolved 1999) Hx of appendectomy (Acute) Hx of left knee surgery (Acute) S/P right knee arthroscopy (Acute) History of low anterior resection of rectum (Inactive) Occupational Therapy Inpatient Evaluation/Re-Eval M1 PT/OT-IP Prior Functional Status Start: 12/18/17 10:37 Freq: NEEDED Status: Active Protocol: Document 12/18/17 10:37 [facility] (Rec: 12/18/17 11:00 [facility] [id number]) Medical Review Prior Functional Status Medical History Reviewed Yes Communication no deficits noted. Mobility and Gait Previous to shoulder surgery, pt reports independence with all mobilities. He describes himself as an avid hiker. Activities of Daily Living and IADL's Pt independent with all ADL's and IADL's. Social History Household Members spouse Living Arrangements House Number of Floors (Floors) One Floor Number of Stairs To Enter/Railing? 1 step to enter Home Environment Standard Height Toilet Walk in Shower Built-In Shower Seat Home Equipment Hand Held Shower Employment Status Retired Additional Social History Comment Pt's Adrian will be available for 14/09 assist. Ascending from toilet, there is a L ledge pt can push from if needed. M2 OT-IP Current Condition Start: 12/18/17 10:37 Freq: Status: Active Protocol: Document 12/18/17 10:37 [facility] (Rec: 12/18/17 11:00 [facility] [id number]) Occupational Therapy Current Condition Current Condition Evaluation Date 12/18/17 Treatment Diagnosis R TSA Diagnosis Onset Date 12/17/17 Post Operative Precautions Shoulder Precautions Sling PROM Internal Rotation to Body No External Rotation No Abduction Forward Flexion to 90 degrees Pendulums Weight Bearing Status Weight Bearing Status Non-Weight Bearing Allowed Weight Bearing Amount (enter % R shoulder non weight bearing. or #) (%) M3 OT- IP Subjective and Pain Start: 12/18/17 10:37 Freq: Status: Active Protocol: Document 12/18/17 10:37 [facility] (Rec: 12/18/17 11:00 [facility] [id number]) OT- Subjective Occupational Therapy Visit Type Type Initial Evaluation Visit Start Time 09:10 Visit Stop Time 09:35 Total Visit Minutes 35 Occupational Therapy Visit Comments Patient/Caregiver Goals Pt wanting to go home today. OT Pain Assessment Pain When Pain Assessed At Rest Pain Present Pain Present Pain Reported Location Rt Forearm Intensity 4 Scale Used Numeric (1 - 10) M4 OT- IP ADL's Start: 12/18/17 10:37 Freq: Status: Active Protocol: Document 12/18/17 10:37 [facility] (Rec: 12/18/17 11:00 [facility] [id number]) OT ADL-Dressing General Eval Upper Body Dressing Ability Maximum Assistance Lower Body Dressing Ability Moderate Assistance Comments OT Dressing Comments Pt dependent for UB dressing and sling management and LB dressing MODA . Pt's educated for sling management and able to state good understanding to be able to assist to help him. OT ADL-Toileting General Evaluation Toileting Ability Minimal Assistance Devices Toileting Assistive Devices Urinal Comments OT Toileting Comments Pt's able to assist for clothing management while pt using urinal. OT ADL-Bathing Comments OT Bathing Comments Pt wanting to shower at home. M6 OT- IP Functional Cognition Start: 12/18/17 10:37 Freq: Status: Active Protocol: Document 12/18/17 10:37 [facility] (Rec: 12/18/17 11:00 [facility] [id number]) Cognitive Factors Limiting Selfcare Function Cognitive Ability Level of Alertness Alert Patient Orientation Name Place Situation Attention Span Ability Capable of Focused Attention Capable of Sustained Attention Ability to Follow Commands Able to Follow Multi-Step Commands Memory Description No Deficits Noted Safety Awareness Underestimates Need for Assistance Cognitive Comments Cognitive Assessment Comments VC to sit to rudi/doff pants/ socks. Educated pt on leaning forwards to hang right arm down so able to do dressing and hygiene needs. OT- Vision and Hearing OT- Hearing Assessment OT- Hearing Assessment WFL M7 OT- IP Mobility and Balance Start: 12/18/17 10:37 Freq: Status: Active Protocol: Document 12/18/17 10:37 [facility] (Rec: 12/18/17 11:00 [facility] [email or web address]) OT- Bed Mobility Assessment Rolling Type of Rolling Roll to Left Level of Assistance Standby Assistance Head of Bed Elevated Supine to Sit Supine to Sit Assist Standby Assistance OT-Transfer Assessment Sit to and From Stand Sit to and from Stand Standby Assistance Transfers Transfer Ability Standby Assistance Technique Transfer Destination Chair Transfer Technique Stand Step Pivot Devices Transfer Assistive Devices None Comments Mobility Comments Pt able to safety walk in the room without a device and present for SBA as needed. OT- Balance Assessment Sitting Balance and Reactions Static Sitting Balance Ability Normal Dynamic Sitting Balance Ability Normal Standing Balance and Reactions Static Standing Balance Ability Normal Dynamic Standing Balance Ability Good M8 OT- IP Objective Assessments Start: 12/18/17 10:37 Freq: Status: Active Protocol: Document 12/18/17 10:37 [facility] (Rec: 12/18/17 11:00 [facility] [email or web address]) OT Gross Range of Motion Upper Extremity Range of Motion Assessment Right Impaired ROM Impairments Pt able to use LUE WFL. RUE WFL from elbow to distal. M9 OT- IP Assessment and Plan Start: 12/18/17 10:37 Freq: Status: Active Protocol: Document 12/18/17 10:37 [facility] (Rec: 12/18/17 11:00 [facility] [email or web address]) OT Summary Assessment and Plan Potential Rehabilitation Potential Excellent Analytic Complexity at Evaluation Low Summary OT Impairments Pain Range of Motion Strength Grooming Dressing Toileting Bathing Assessment Summary Pt Low complexity and pt doing well, trained and pt going home today. Pt and has all good understanding for all sling, RUE management, and pendulum exercises. Goals Patient/Caregiver Education Goal Demonstrate Post-Op Precautions Caregiver Independent Assisting Patient Days to Meet Goals 1 Frequency of Treatment Frequency Of Treatment Once a Day Treatment Plan OT Treatment Plan Patient/Family Education Discharge Planning Discharge Recommendations OT Discharge Recommendations Home with Assistance
--- NOTE | 2017-12-18 11:51 | CM.DANOTE ---
DCP/Assessment: Reviewed chart. Patient is a 67yr old male admitted to [facility] for right TSA performed on 12-17-[address] Wheeler. Primary payor is 1)Medicare 2)Commercial. Currently without PCP. Met with patient and spouse/Hilary at bedside explained CM/SW role. Patient alert and oriented at time of visit. Patient hopes to go home today. Patient and spouse report that they have no anticipated needs. Patient is left handed and surgery was done on right shoulder. Spouse reports that she can assist patient with all ADL's. Important message from Medicare signed by spouse at approximately 11:00AM. GATE MANAGER spoke with Ortho/PA and d/c confirmed for today. P: Home today. JARVIS Gallegos Discharge Planning/Care Management CM Discharge Assessment Start: 12/18/17 11:15 Freq: Status: Discharge Protocol: Document 12/18/17 11:47 KJS (Rec: 12/18/17 11:51 KJS [id number]) Discharge Planning Assessment Assigned Net Ui Developer JARVIS Gallegos DPOA/Assigned Designee Name Hilary Cordero (spouse) Advance Directives? Yes Advance Directives on File No History Provided By Patient Significant Other Has Patient been admitted in last 30 No days? Prior Living Arrangements House Household Members spouse Type of transporation used prior to Drives own vehicle admit Independent with ADL's Yes Is patient alert and oriented? Yes Caregiver for Another No Barriers to Discharge No Discharge Plan Home Referrals Initiated None needed Whiteboard Updated in Patient Room with Yes name and ext. # of Net Ui Developer Review Status In Process Please Provide Date Initial DC 12/18/17 Assessment Was Performed Next Review Type Continued Stay Review Pre-Anesthesia Assessment Start: 12/01/17 08:40 Freq: Status: Discharge Protocol: Document 12/01/17 08:40 CAB (Rec: 12/01/17 09:19 CAB [id number]) Pre-Anesthesia Assessment Patient Also Known As (ALESHA) Lorenzo Patient Information Reviewed Via Phone Assessment Assessment Completed With Patient Lab Results BMP/CMP CBC EKG Primary Care Provider PALOMO Doctor Clone Seen Specialist in Last 12 Months Yes Specialist Seen Orthopedist Sleep specialist Primary Language Serbian Race Relations Adviser Required No Height 172.72 cm Weight 94.801 kg Body Mass Index (BMI) 31.7 Hearing Ability Normal Visual Assist Glasses Dentition Type Teeth, Natural Present Barriers to Learning None Other Aids No Hx Anesthesia Reactions No Hx Family Anesthesia Reaction Yes: Brother is slow to wake up Hx Malignant Hyperthermia No Hx Blood Transfusions No Anesthesia Review Requested No 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 No Does patient have KERN/SOB No Hx Sleep Apnea Yes Will Bring CPAP/BIPAP DOS Yes: Will obtain CPAP 12/03/17 Currently Taking a Beta Jack No Can You Climb a Flight of Stairs Without Yes SOB Hx Chest Pain No Hx SOB No Hx Syncope or Dizziness No Anti-Coagulant Therapy No Has a Newspaper Delivery Counselor No Cardiac Testing No Hx Pacemaker/ICD No Pacemaker Rep Required? No Cardiac Clearance Received Not Applicable Diet Type At Home Regular dysphagia No Urinary Catheter Present No Hx Urinary Self Catheterization No Diabetes No Hx Drug Resistant Organism No Presence of External or Internal Medical No Devices Have you traveled outside the [facility] in the last 30 days? Marital Status Lives With spouse Prior Living Arrangements House Number of Floors (Floors) One Floor Number of Stairs To Enter/Railing? 1 step, no railing Support System Child/Children Spouse Does the Patient Have Assistance After Yes Surgery Patient Discharge Plan Description Return Home Comment Pt not advised on length of stay per surgeon's office Feels Safe in Current Environment Yes Been Physically Hurt or Threatened By a No Person in Current Environment Do you have thoughts of harming yourself None or others? Are you currently considering suicide? No Do you have a plan to hurt yourself or No Plan others? Do You Have Any Spiritual Beliefs That No May Affect Your HC Choices? Do You Have Any Cultural Practices That No May Affect Your HC Choices? Spiritual Referral None Comment Hinduism. Pt will notify his pentecostalism Who Can We Speak to About Patient's Care Family, friends Identifying Code for Release of Patient Declines to issue Information Health Care Proxy/Next of Kin Adrian () Health Care Proxy Phone Number home: [phone] cell: [phone] Emergency Contact Name Adrian () Emergency Contact Phone Number home: [phone] cell: Advance Directives? Yes Advance Directives on File No Requested Patient Bring Advanced Yes Directives DOS Power of Manager Bank Yes Power of Manager Bank Name Adrian () Power of Manager Bank Phone Number home: [phone] cell: [phone] PAC Instructions Bring CPAP/BIPAP Durable medical equipment Medications to take/avoid Nasal antibiotic No ETOH/petroleum product on skin DOS NPO Post-op transportation Pre-surgical wash Sturdy shoes/comfortable clothes Do not bring valuables and remove jewelry
== END 2017-12-18 10:25 | disposition home or self-care (01) | DRG 483 ==
PROVIDERS: Physician Assistant; Admitting Provider Orthopaedic Surgery; Family Provider Orthopaedic Surgery; PCP Family Medicine; Visit Provider Orthopaedic Surgery
PROC: 0RQJ0ZZ Repair Right Shoulder Joint, Open Approach (ICD-10-PCS; CPT 23472; principal; 2017-12-17 07:45)
DX: M19.011 Primary osteoarthritis, right shoulder (principal); G47.33 Obstructive sleep apnea (adult) (pediatric); R39.198 Other difficulties with micturition
CPT/HCPCS: 36415; 64450; 73020; 81003; 85027; 97116; 97161; 97165; 97530; C1776; J0330; J0690; J1100; J2250; J2405; J2795; J3010

== ENCOUNTER → 2018-06-14 09:43 | Outpatient (CLI) | payer MEDICARE, SELFPAY ==
[2017-12-17 11:25] VITALS: BMI 31.7
--- NOTE | 2018-06-14 | DI.CT.S_ITS ---
PROCEDURE: CT UE LT WO CON INDICATIONS: Pain in left shoulder TECHNIQUE: Noncontrast 1-1.5 mm thick sections acquired from the acromioclavicular joint to the inferior scapula, with coronal and sagittal reformatting. COMPARISON: [facility], CR, XR SHOULDER 2+ VIEWS LEFT, 06/08/2018, 11:25. [facility], CT, CT UE RT WO CON, 10/21/2017, 10:42. FINDINGS: Image quality: Excellent. Bones: No fracture or focal osseous destruction. Glenohumeral marginal spurring and subchondral sclerosis. There is moderate to severe on humeral joint space narrowing. 2.0 x 1.4 cm loose body seen within the subcoracoid region. Moderate AC joint degeneration. Soft tissues: Gross unremarkable appearance of the visualized subcutaneous soft tissues and left lung. IMPRESSION: Advanced glenohumeral joint degeneration as above. Associated bulky osteophyte formation. 2.0 cm subcoracoid loose body. Dictated by: Mateo Victor M.D. on 06/14/2018 at 11:21 Approved by: Mateo Victor M.D. on 06/14/2018 at 11:27
== END ==
PROVIDERS: Visit Provider Orthopaedic Surgery
DX: M25.512 Pain in left shoulder (principal); M19.012 Primary osteoarthritis, left shoulder; M24.012 Loose body in left shoulder
CPT/HCPCS: 73200

== ENCOUNTER → 2018-07-13 09:21 | Outpatient (CLI) | payer MEDICARE, SELFPAY ==
[2017-12-17 11:25] VITALS: BMI 31.7
[2018-07-13 09:34] LABS: Bacteria Urine None Seen; RBC Urine None Seen (0-5/HPF)
[2018-07-13 09:53] LABS: Appearance Urine UA CLEAR; Bilirubin Urine UA NEGATIVE (NEGATIVE); Color Urine UA YELLOW; Glucose Urine UA NEGATIVE (Negative); Ketones Urine UA NEGATIVE (NEGATIVE); Leukocyte Esterase Urine UA NEGATIVE (NEGATIVE); Nitrite Urine UA NEGATIVE (Negative); Occult Blood Urine UA NEGATIVE (Negative); Protein Urine UA NEGATIVE (Negative); Specific Gravity Urine UA 1.015 (1.000-1.035); Urobilinogen Urine UA 0.2 E.U./dL (0.2); pH Urine UA 6.5 (4.5-8.0)
[2018-07-13 10:09] LABS: Hematocrit 48.4 % (41-53); Hemoglobin 16.1 g/dL (13.5-17.5); Mean Corpuscular HGB Conc 33.2 % (30-36); Mean Corpuscular Hemoglobin 30.6 PG (26-34); Platelet Count 246 X10^3/uL (150-400); Red Blood Cell Count 5.27 X10^6/uL (4.5-5.9); Red Cell Distribution Width 14.3 % (11.6-14.8); White Blood Cell Count 5.7 X10^3/uL (4.5-11.0)
[2018-07-13 10:20] LABS: Hemoglobin A1C% w Est Avg Glu 5.4 % (4.0-6.0)
[2018-07-13 10:25] LABS: Culture Indicated Urine Cult Not Indicated; Mucus Urine 1+ (Negative); WBC Urine 0-1/HPF (0-5/HPF)
[2018-07-13 10:43] LABS: Transferrin 244 mg/dL (206-381)
[2018-07-13 10:45] LABS: Blood Urea Nitrogen 18 mg/dL (9-20); Calcium 9.4 mg/dL (8.4-10.2); Carbon Dioxide 30 mmol/L (22-32); Chloride 101 mmol/L (98-107); Estimated Glomerular Filt Rate > 60.0 mL/min (>60); Glucose 95 mg/dL (80-110); HEMOLYSIS < 15 (0-50); Potassium 4.7 mmol/L (3.4-5.1); Sodium 139 mmol/L (137-145)
== END ==
PROVIDERS: Visit Provider Orthopaedic Surgery
DX: Z01.818 Encounter for other preprocedural examination (principal); E61.1 Iron deficiency; N39.0 Urinary tract infection, site not specified; R73.9 Hyperglycemia, unspecified
CPT/HCPCS: 36415; 80048; 81001; 83036; 84466; 85027; 93005; 93010

== ENCOUNTER 2018-08-17 06:12 | Inpatient (IN) | payer MEDICARE, SELFPAY ==
[2017-12-17 11:25] VITALS: BMI 31.7
[2018-08-03 09:38] VITALS: BMI 33.9
[2018-08-17] VITALS (13 sets, daily range): BP systolic 103–140; BP diastolic 56–77; PULSE 64–77; RESP 9–17; TEMP 36.3–36.5; O2SAT 95–97; BMI 33.4
[2018-08-17] MEDS: LACTATED RINGERS 1,000 ML 42 ML IV ×2 (06:45→09:16)
--- NOTE | 2018-08-17 06:53 | PM.PREOP ---
Pre-operative Note Interval Note History & Physical reviewed/Exam performed by Physician: Yes Changes to H&P: No
[2018-08-17] MEDS: CELECOXIB 200 MG CAPSULE PO (07:05)
[2018-08-17] MEDS: PREGABALIN 75 MG CAPSULE PO (07:05)
[2018-08-17] MEDS: ACETAMINOPHEN 325 MG TABLET 975 MG PO (07:05)
[2018-08-17] MEDS: MIDAZOLAM 2 MG/2 ML VIAL 1 MG IV (07:43)
[2018-08-17] MEDS: fentaNYL 100 MCG/2 ML INJ 50 MCG IV (07:43)
[2018-08-17] MEDS: CEFAZOLIN 2 GM/100 ML FROZ.PIGGY IV ×2 (07:44→22:44)
--- NOTE | 2018-08-17 07:45 | SUR.PREOP ---
Block start time 0730 . Monitoring initiated and maintained throughout procedure. Oxygen and medications given per anesthesiologist instructions. Patient remained stable throughout procedure, no adverse reactions noted. Block end time 0740.
--- NOTE | 2018-08-17 07:47 | SUR.PREOP ---
ihsan brought pt to OR soon after block ended, pt left in stable condition.
[2018-08-17] MEDS: TRANEXAMIC ACID 1,000 MG VIAL 1000 MG INJ ×2 (08:00→09:36)
[2018-08-17] MEDS: BUPIVACAINE 0.5% W/ EPI (PF) VIAL 30 ML INJ (08:28)
[2018-08-17] MEDS: THROMBIN (RECOMBINANT) 5,000 UNIT VIAL 5000 UNIT TOP (08:29)
--- NOTE | 2018-08-17 10:01 | DI.RAD.S_ITS ---
PROCEDURE: XR SHOULDER LT 1V INDICATIONS: post op shoulder TECHNIQUE: Single views of the shoulder were acquired. COMPARISON: [facility], CR, XR SHOULDER RT 1V, 12/17/2017, 10:42. FINDINGS: Expected postoperative alignment of left shoulder arthroplasty. Overlying soft tissue post surgical changes. Surgical drain noted. No fracture. IMPRESSION: Expected postoperative appearance Dictated by: Mateo Victor M.D. on 08/17/2018 at 11:04 Approved by: Mateo Victor M.D. on 08/17/2018 at 11:07
--- NOTE | 2018-08-17 10:09 | P.OP_ITS ---
Operative Date/Time/Diagnoses Date of procedure: 08/17/18 Time of procedure: 09:40 Pre-op diagnosis: Left shoulder osteoarthritis Post-op diagnosis: same Procedure & Clinicians Procedure: A left total shoulder replacement Same procedure as scheduled: Yes Indications: The patient has had progressively worsening left shoulder pain with radiographic changes consistent with arthritis. Non-operative management has failed and the patient has requested total shoulder replacement. The risks, benefits and alternatives to surgery were discussed with the patient prior to proceeding. Risks discussed included, but were not limited to, failure to relieve pain, stiffness, infection, nerve damage, deep venous thrombosis, pulmonary embolism, stroke, coma, heart attack, permanent paralysis and , as well as the potential need for eventual revision of the prosthetic. Surgeon: Hermann Wheeler Visual Specialist: Kiesha Tapia Click Yes if Unassisted: No Anesthesia Type: General, Peripheral nerve block and Local Operative Notes Findings: Significant osteoarthritic change with severe posterior erosion of the glenoid. Closure Type: primary Specimen(s): none sent Prosthetic devices, grafts, tissues, transplants, or devices: Prosthetics used in this procedure were manufactured by the [employer] and included an Altivate short stem total shoulder system with a 14 mm humeral stem, a neutral humeral neck a 50 mm x 20 mm neutral humeral head and a 50 mm all- polyethylene pegged E +glenoid. In addition a patient specific glenoid guide system was used but not implanted. Applied: drain(s) and implant(s) Estimated Blood Loss (mL): 200 Blood products transfused: none Procedure in detail: The patient was seen in the pre-operative area, where the patient identified the left shoulder as the operative site and this was marked with my initials. The patient received pre-operative antibiotics, underwent an interscalene block, and was taken to the operating room and placed on the operative table in the supine position. After satisfactory anesthesia, a full ?time out? was performed. The patient was repositioned in the ?beach chair? position using a dedicated positioner. All pressure points were well padded, and the knees were slightly bent to prevent tension on the sciatic nerves. The left arm was prepared from the fingers to the base of the neck with ChloroPrep in the usual fashion and draped through sterile drapes. An approximately 15 cm incision was created, starting at the clavicle above the coracoid process and extended towards the deltoid insertion. The deltopectoral interval was used to access the shoulder. The cephalic vein was taken medially. A self retaining retractor was placed. The upper centimeter of the pectoralis major tendon was released. The ?three sisters? were identified and cauterized. The axillary nerve was palpated and protected throughout the case. The biceps was released from its groove and tenodesed over the top of the pectoralis major tendon. The subscapularis was released from the lesser tuberosity with a subscapularis peel and tagged for later repair. The shoulder was dislocated and a cutting guide was used for the proximal humeral osteotomy in 30 degrees of retroversion. A starter reamer was used followed by the cylindrical reamers. This continued in larger sizes in till cortical bite was achieved. Sequential broaching was then performed until a line to line fit with the reamer occurred. A proximal humeral protector was then placed. We then removed the self-retaining retractor and placed retractors to access the glenoid. The subscapularis was released with a ?360 degree release? with care being taken to protect the axillary nerve with the inferior portion of this procedure. The remnant of labrum and biceps stump were removed. The guide pin was placed using the Cognitive Code patient specific guide. I confirmed the exit point of the pin in the glenoid fossa by palpation. The glenoid was appropriately reamed. The guide for the peripheral holes was used and the center hole enlarged. The trial glenoid was placed with good stability. We then cemented the final implant into place after irrigating the peg holes and drying them with thrombin-soaked Gelfoam. We returned our attention to the humerus, a trial humeral head was applied and a trial reduction performed. Stability was checked with 50% posterior translation, 45? external rotation at the side with the subscapularis in the repaired position and 70? of internal rotation in the ?scarecrow position?. This was felt to be satisfactory and the appropriate implants were opened. Five holes were drilled along the humeral osteotomy and #2 Ethibond sutures placed for eventual subscapularis repair. The humeral prosthetic was impacted into the humerus. The humeral head was applied when the stem was still slightly proud and impacted to both seat the head and fully seat the stem. The joint was relocated one final time. The joint was irrigated and the subscapularis repaired to the previously placed sutures using Danny-Wallace sutures. The top of the subscapularis was closed to the leading edge of the supraspinatus with a figure of 8 #2 Ethibond to close the rotator interval. A deep drain was placed and brought out supero-laterally. The deltopectoral interval was closed with interrupted 0 Vicryl. The subcutaneous layer was closed with 3-0 Vicryl, and the skin with a running 3-0 V-Lock suture and SteriStrips. An Aquacel Ag dressing was applied, the patient?s arm was placed in a sling, and the patient was taken to recovery having tolerated the procedure well. Complications: none Condition: stable Disposition: PACU Plan for aftercare: The patient will be maintained on a standard total shoulder replacement protocol with passive range of motion limited to 90 degrees forward flexion, 0 degrees external rotation at the side, 0 degrees abduction and internal rotation to the body. The patient will receive aspirin and sequential compression devices for DVT prophylaxis. The patient will be discharged home when safe for the home environment, likely tomorrow.
--- NOTE | 2018-08-17 10:31 | SUR.PHASEI ---
Report called to Charley Barnes
--- NOTE | 2018-08-17 10:51 | SUR.PHASEI ---
Pt transferred to the floor. Report to Adia. VS stable. Drsg checked with RN. Sling in place. Pt able to wiggle fingers. Belongings bag and CPAP with patient.
[2018-08-17] MEDS: LACTATED RINGERS 1,000 ML 125 ML IV ×2 (12:00→19:18)
--- NOTE | 2018-08-17 14:11 | PT.IIE ---
Current Diagnoses Primary osteoarthritis, left shoulder (08/17/18) Surgery Performed Operation Date: 08/17/18 07:45 Actual Procedures p Total Shoulder Arthroplasty(Left) - Hermann Wheeler MD Surgical History (Last Updated 08/03/18 @ 10:03 by Roberta Richardson RN) History of partial colectomy (Resolved 2010) Hx of cholecystectomy (Resolved 1999) History of arthroplasty of right shoulder (Acute 12/17/17) History of dental surgery (Acute ~06/2018) Hx of appendectomy (Acute) Hx of left knee surgery (Acute) S/P right knee arthroscopy (Acute) History of low anterior resection of rectum (Inactive) Medical History (Last Reviewed 02/07/18 @ 09:09 by Baldemar Spicer MD) Right shoulder pain (Chronic) Tubulovillous adenoma of colon (Resolved ~2010) Rosacea (Chronic 1994) Obstructive sleep apnea (Chronic 2001) Kidney stones (Resolved ~2015) Colon polyps (Acute ~2010) History of benign neoplasm of colon (Resolved) Physical Therapy Inpatient Evaluation/Re-Eval M1 PT/OT-IP Prior Functional Status Start: 08/17/18 15:19 Freq: NEEDED Status: Active Protocol: Document 08/17/18 14:11 AB (Rec: 08/17/18 15:33 AB [id number]) Medical Review Prior Functional Status Medical History Reviewed Yes Communication able to make needs known Mobility and Gait pt stated that he is independent with all mobilities and ambulation without AD Social History Household Members spouse Living Arrangements House Number of Floors (Floors) One Floor Number of Stairs To Enter/Railing? 1 step to enter Home Environment Standard Height Toilet Walk in Shower Home Equipment Shower Seat without Backrest Hand Held Shower Employment Status Retired Additional Social History Comment pt sleeps on a recliner M2 PT-IP Current Condition Start: 08/17/18 15:19 Freq: NEEDED Status: Active Protocol: Document 08/17/18 14:11 AB (Rec: 08/17/18 15:33 AB [id number]) Physical Therapy Current Condition Current Condition Evaluation Date 08/17/18 Treatment Diagnosis s/p L total shoulder replacement; difficulty in walking Onset Date 08/17/18 Precautions Shoulder Precautions Sling PROM Internal Rotation to Body No External Rotation No Abduction Forward Flexion to 90 degrees Pendulums Weight Bearing Status Weight Bearing Status Non-Weight Bearing M3 PT-IP Subjective Start: 08/17/18 15:19 Freq: NEEDED Status: Active Protocol: Document 08/17/18 14:11 AB (Rec: 08/17/18 15:33 AB [id number]) Subjective Physical Therapy Visit Type Type Initial Evaluation Visit Start Time 14:11 Visit Stop Time 14:49 Total Visit Minutes 38 Number of [employer] Visits 0 Physical Therapy Visit Comments Patient Comments pt agreeable to do PT Therapy Pain Assessment Pain Present Pain Present Denied Pain M4 PT-IP Mobility and Gait Start: 08/17/18 15:19 Freq: NEEDED Status: Active Protocol: Document 08/17/18 14:11 AB (Rec: 08/17/18 15:33 AB [id number]) PT-Bed Mobility Assessment Supine to Sit Supine to Sit Standby Assistance Head of Bed Elevated Scooting Scooting to Edge of Bed Standby Assistance PT-Transfer Assessment Sit to and From Stand Sit to and from Stand Standby Assistance Equipment Transfer Assistive Device None Gait Belt Orthotic/Prosthetic Devices or Brace: Yes Transfers Transfer Destination Chair Transfer Technique pt ambulated without AD Transfer Ability Level of Assist Standby Assistance Comments Mobility Comments pt sleeps on a recliner at home. completed bed mobility with HOB elevated. educated pt and pt's on how to manage sling and educated on pt's shoulder precautions. attempted to do AROM on L elbow but pt still does not have motor control on the elbow but completed AROM on L wrist/hand. Gait Assessment Gait Gait Assistance Required: Standby Assistance Distance (Feet) 50 Able to Maintain Weight Bearing Status Yes During Gait Assistive Devices Assistive Device None Gait Belt Orthotic/Prosthetic Devices or Brace: Yes Gait Deviations General Gait Pattern Antalgic Decreased Stride Length Decreased Feet Clearance Factors Limiting Gait Function Factors Limiting Gait Function Decreased Sensation Decreased Strength Limited Range of Motion Poor Balance Comments Gait Comments pt ambulated in room without AD SBA 50 ft. presents with antalgic waddling gait. pt agreed to sit up on chair. positioned pt on chair. call light and table within reach. cold pack provided. Stair Climbing Assessment Evaluation Level of Assist On Stairs Standby Assistance Devices Stair Climbing Assistive Devices None Technique/Endurance Stair Climbing Direction Ascend and Descend Stair Climbing Technique Step to Step Number of Steps Climbed 3 Query Text: Stair Climbing Set # Repetitions (reps) 2 PT-Balance Assessment Sitting Balance and Reactions Static Sitting Balance Ability Good Dynamic Sitting Balance Ability Good Standing Balance and Reactions Static Standing Balance Ability Good Dynamic Standing Balance Ability Fair Device Used without AD M5 PT-IP Objective Assessments Start: 08/17/18 15:19 Freq: NEEDED Status: Active Protocol: Document 08/17/18 14:11 AB (Rec: 08/17/18 15:33 AB [id number]) Orientation Orientation/Cognition Level of Alertness Alert Orientation Name Age Birthday Month Date Year Day of Week Place Situation Language Function Ability No Deficits Noted Safety Awareness Understands Safety Issues Memory Description No Deficits Noted Gross Range of Motion Lower Extremity ROM Assessment Within Functional Limits Strength Lower Extremity Strength Assessment Within Functional Limits Coordination Assessment Gross Coordination Gross Coordination WNL Sensation Assessment Sensation Gross Sensation Left UE Impaired Light Touch Impaired Proprioception (Position) Impaired Sensation Description Numbness Comments Sensation Comments pt still numb on L arm and has decrease motor control M6 PT-IP Treatment Start: 08/17/18 15:19 Freq: NEEDED Status: Active Protocol: Document 08/17/18 14:11 AB (Rec: 08/17/18 15:33 AB [id number]) Physical Therapy Treatment Exercises Exercises Elbow Flexion/Extension Wrist ROM Hand ROM Other Treatments Other Treatment Performed PROM elbow flexion/extension completed M7 PT-IP Assessment and Plan Start: 08/17/18 15:19 Freq: NEEDED Status: Active Protocol: Document 08/17/18 14:11 AB (Rec: 08/17/18 15:33 AB [id number]) PT Summary Assessment and Plan Potential Rehabilitation Potential Good Status of Condition at Evaluation Stable Summary Impairments Pain ROM Strength Balance Coordination Sensation Tone Bed Mobility Transfers Gait Activity Tolerance Assessment Summary pt requiring SBA with mobility . pt had R shoulder done last year and stated that he is familiar on what to do post-op . pt plans to go home with spouse to assist him. will attempt pendulum and stair climbing tomorrow. Goals Bed Mobility Goal Independent Transfer Goal Independent Gait Goal Independent Gait Distance 250 Other Goals up/down 1 step without rails Mod I Days to Meet Goals 3 Frequency of Treatment Frequency Of Treatment Twice a Day Treatment Plan Physical Therapy Treatment Plan Bed Mobility Training Transfer Training Gait Training Therapeutic Exercise Balance Retraining Post Op Education Discharge Planning Hot or Cold Pack Neuromuscular Re-ed Coordination Retraining Manual Therapy Other Recommendations and Next Treatment ambulation, pendulum exercise, Focus stair climbing Recommendations To Nursing Amount of Assist Needed Standby Assistance Discharge Recommendations PT Discharge Recommendations Home with Assistance Outpatient PT
[2018-08-17] MEDS: ACETAMINOPHEN 325 MG TABLET PO ×3 (14:42→22:44)
[2018-08-17] MEDS: IBUPROFEN 400 MG TABLET PO ×3 (14:42→22:43)
--- NOTE | 2018-08-17 14:48 | PC.NURSE ---
Ortho: Pt received from PACU s/p total lt shoulder. He has had a previous rt shoulder. He understands his mobility limits. He is lt handed and reports he has been practicing with his right hand for the last 6 months or so. Lt aquacel w/spots of drainage and intact. Lt immob on, can move fingers, sl diminished sensation due to block, no pain, strong radial pulses, brisk cap refill. No pain. Has worked w/PT once. No void still post surgery. Pt knows we are following that and he does have a urinal. Spouse at bedside. Reports no concerns. Cont w/poc.
[2018-08-17] MEDS: DOCUSATE 100 MG CAPSULE PO (20:37)
[2018-08-17] MEDS: ASPIRIN EC 81 MG TABLET PO (20:37)
[2018-08-18 04:07] VITALS: BP 121/73; PULSE 67; RESP 16; TEMP 36.7; O2SAT 97
[2018-08-18] MEDS: CEFAZOLIN 2 GM/100 ML FROZ.PIGGY IV (06:20)
[2018-08-18] MEDS: IBUPROFEN 400 MG TABLET PO ×2 (06:21→08:43)
[2018-08-18] MEDS: ACETAMINOPHEN 325 MG TABLET PO ×2 (06:22→08:44)
[2018-08-18 07:11] LABS: Hematocrit 41.9 % (41-53)
--- NOTE | 2018-08-18 07:44 | PM.DS.1 ---
History of Present Illness Date Patient Seen: 08/18/18 Time Patient Seen: 07:44 Chief complaint: [id number] Narrative: The history and physical examination are contained in the chart in a previously completed note. Please refer to that note for this information. Discharge Providers Date of admission: 08/17/18 06:12 Discharge Date: 08/18/18 Primary care physician: Esdras Fregoso MD Consults: 08/17/18 10:51 Consult to Discharge Planning Routine Comment: Consult to Physical Therapy Evaluate & Treat Comment: PROM 90 FF, 0 ER, 0 Abd, IR to body. Pendulums OK Physician Instructions: Evaluate and Treat Discharge provider: Hermann Wheeler MD Summary Discharge Diagnosis: 1. Left shoulder osteoarthritis Exam Vital Signs (past 8 hours): - 08/18/18 04:07 Temperature 98.0 F Pulse Rate 67 Respiratory Rate 16 Blood Pressure 121/73 Pulse Oximetry 97 Oxygen Delivery Method Room Air Oxygen Flow Rate 0 Narrative Exam Narrative: Left shoulder wound is dressed with minimal drainage on the bandage. Light touch is slightly reduced but intact in the radial, ulnar, median, musculocutaneous and axillary nerve distribution. He can extend his thumb, abduct his thumb, abduct his fingers and fire his biceps and deltoid. Objective Labs Result Diagrams: 08/18/18 06:30 Labs: Laboratory Results - last 24 hr 08/18/18 06:30 Hgb 14.0 Hct 41.9 Discharge Plan Discharge Plan Patient Disposition: Home Discharge Med Rec/Prescriptions Prescriptions: New acetaminophen 325 mg Tablet 325 mg PO Q4HR 30 Days RF: 0 aspirin 81 mg Tablet,Delayed Release (Dr/Ec) 81 mg PO BID 42 Days Qty: 84 RF: 0 ibuprofen 400 mg Tablet 400 mg PO Q4HR 30 Days RF: 0 oxycodone 5 mg Tablet 5 mg PO Q3HR PRN (Reason: Pain, Moderate (4-6)) Qty: 40 RF: 0 Continued acetaminophen [Tylenol Extra Strength] 500 mg Tablet 1,000 mg PO DAILY PRN (Reason: Pain) RF: 0 Respironics Dreamstation CPAP Qty: 1 RF: 0 Follow up/Referrals: Esdras Fregoso MD [Primary Care Provider] - Hermann Wheeler MD [Physician] - 2 Weeks Provider Discharge Instructions Diet: Diet as Tolerated Activity: You may use the left arm in front of your body below shoulder level. You may do pendulum exercises. Keep the arm in the sling except for eating, exercises and hygiene. Cold/Heat Therapy: Apply ice to the left shoulder for 15 minutes of every hour as needed for pain relief. Skin/Wound/Dressing Care Report to your healthcare provider any signs of infection, such as:: chills, fever, night sweats, increased pain, unusual drainage and unusual redness Dressing: Leave the dressing intact until your follow-up. If drainage or water saturates the central strip of the dressing please call the office to have it changed. Visit Report/Discharge Packet Instructions: DI for Shoulder Replacement Stand Alone Forms: Surgery Discharge Discharge Data Primary Care Provider: Esdras Fregoso Attending Provider: Hermann Wheeler Admit Date/Time: 08/17/18 06:12
--- NOTE | 2018-08-18 08:03 | CM.DPC ---
DCP Discharge Home Per MD, pt is medically stable to d/c home later today after final PT and no identified barriers to discharge. Per PT, pt from home with spouse and independent at baseline and has progressed with PT for safe d/c home with spouse assist and outpt PT. Pt had similar surgical procedure in Nov 2017 and was able to d/c home with spouse assist. Plan: Patient to d/c home today via spouse POV and outpt PT. No SW needs at this time. JARVIS Ivey
[2018-08-18 08:31] VITALS: BP 119/62; PULSE 68; RESP 18; TEMP 36.7; O2SAT 99
[2018-08-18] MEDS: ASPIRIN EC 81 MG TABLET PO (08:43)
[2018-08-18] MEDS: DOCUSATE 100 MG CAPSULE PO (08:43)
--- NOTE | 2018-08-18 08:45 | OT.IP.TRT ---
Current Diagnoses Primary osteoarthritis, left shoulder (08/17/18) Surgery Performed Operation Date: 08/17/18 07:45 Actual Procedures p Total Shoulder Arthroplasty(Left) - Hermann Wheeler MD Occupational Therapy Treatment Note M3 OT- IP Subjective and Pain Start: 08/18/18 08:55 Freq: Status: Active Protocol: Document 08/18/18 08:45 PJM (Rec: 08/18/18 08:57 PJM [email or web address]) OT- Subjective Occupational Therapy Visit Type Type Administrative Note Visit Start Time 08:45 Notes OT referral received on this pt s/p L TSA. Pt had R TSA 2017 and is familiar with all adapted ADLs. Supportive capable can assist PRN at home. No OT needs identified for this admission. No charge.
--- NOTE | 2018-08-18 09:00 | PT.IPTN ---
Current Diagnoses Primary osteoarthritis, left shoulder (08/17/18) Surgery Performed Operation Date: 08/17/18 07:45 Actual Procedures p Total Shoulder Arthroplasty(Left) - Hermann Wheeler MD Physical Therapy Treatment Note M2 PT-IP Current Condition Start: 08/17/18 15:19 Freq: NEEDED Status: Discharge Protocol: Document 08/17/18 14:11 AB (Rec: 08/17/18 15:33 AB [id number]) Physical Therapy Current Condition Current Condition Evaluation Date 08/17/18 Treatment Diagnosis s/p L total shoulder replacement; difficulty in walking Onset Date 08/17/18 Precautions Shoulder Precautions Sling PROM Internal Rotation to Body No External Rotation No Abduction Forward Flexion to 90 degrees Pendulums Weight Bearing Status Weight Bearing Status Non-Weight Bearing M3 PT-IP Subjective Start: 08/17/18 15:19 Freq: NEEDED Status: Discharge Protocol: Document 08/18/18 09:00 GGD (Rec: 08/18/18 11:40 GGD [email or web address]) Subjective Physical Therapy Visit Type Type Treatment Note Visit Start Time 08:50 Visit Stop Time 09:00 Total Visit Minutes 10 Number of HOT [employer] OPERATOR Visits 1 Physical Therapy Visit Comments Patient Comments Pt ready to D/C. Therapy Pain Assessment Pain When Pain Assessed During Mobility Pain Present Pain Present Pain Reported M4 PT-IP Mobility and Gait Start: 08/17/18 15:19 Freq: NEEDED Status: Discharge Protocol: Document 08/18/18 09:00 GGD (Rec: 08/18/18 11:40 GGD [email or web address]) PT-Transfer Assessment Sit to and From Stand Sit to and from Stand Standby Assistance Equipment Transfer Assistive Device None Gait Belt Orthotic/Prosthetic Devices or Brace: Yes Transfers Transfer Destination Chair Transfer Ability Level of Assist Standby Assistance Gait Assessment Gait Gait Assistance Required: Standby Assistance Distance (Feet) 120 Able to Maintain Weight Bearing Status Yes During Gait Assistive Devices Assistive Device None Gait Belt Orthotic/Prosthetic Devices or Brace: Yes Gait Deviations General Gait Pattern Antalgic Decreased Stride Length Decreased Feet Clearance Factors Limiting Gait Function Factors Limiting Gait Function Decreased Sensation Decreased Strength Limited Range of Motion Poor Balance Stair Climbing Assessment Evaluation Level of Assist On Stairs Standby Assistance Devices Stair Climbing Assistive Devices None Technique/Endurance Stair Climbing Direction Ascend and Descend Stair Climbing Technique Step to Step Number of Steps Climbed 3 Stair Climbing Set # Repetitions (reps) 1 M5 PT-IP Objective Assessments Start: 08/17/18 15:19 Freq: NEEDED Status: Discharge Protocol: Document 08/17/18 14:11 AB (Rec: 08/17/18 15:33 AB [id number]) Orientation Orientation/Cognition Level of Alertness Alert Orientation Name Age Birthday Month Date Year Day of Week Place Situation Language Function Ability No Deficits Noted Safety Awareness Understands Safety Issues Memory Description No Deficits Noted Gross Range of Motion Lower Extremity ROM Assessment Within Functional Limits Strength Lower Extremity Strength Assessment Within Functional Limits Coordination Assessment Gross Coordination Gross Coordination WNL Sensation Assessment Sensation Gross Sensation Left UE Impaired Light Touch Impaired Proprioception (Position) Impaired Sensation Description Numbness Comments Sensation Comments pt still numb on L arm and has decrease motor control M6 PT-IP Treatment Start: 08/17/18 15:19 Freq: NEEDED Status: Discharge Protocol: Document 08/18/18 09:00 GGD (Rec: 08/18/18 11:40 GGD [email or web address]) Physical Therapy Treatment Exercises Exercises Shoulder Pendulums Elbow Flexion/Extension Wrist ROM Hand ROM Education Brace Education [place] Patient Caregiver M7 PT-IP Assessment and Plan Start: 08/17/18 15:19 Freq: NEEDED Status: Discharge Protocol: Document 08/18/18 09:00 GGD (Rec: 08/18/18 11:40 GGD [email or web address]) PT Summary Assessment and Plan Summary Assessment Summary Pt improved with mobility. He was steady with gait and stair mobility. He demonstrated good technique with exercises. He is safe for home D/C when medically stable. Frequency of Treatment Frequency Of Treatment Twice a Day Treatment Plan Other Recommendations and Next Treatment ambulation, pendulum exercise, Focus stair climbing Recommendations To Nursing Amount of Assist Needed Standby Assistance Discharge Recommendations PT Discharge Recommendations Home with Assistance Outpatient PT
--- NOTE | 2018-08-18 10:12 | PC.NURSE ---
Pt dressed and ready for discharge home with Spouse. Has worked with P.T. and O.T. Discussed d/c meds, time of last dose, reminded Pt to follow instructions given by PSonaT., reviewed stroke education and s/s of infection. Reminded Pt that he was not to drive while on narcotics and to drink plenty of fluids to prevent constipation or dehydration. Pt denies further questions and was taken out via w/c by [employer] to POV with Spouse and all belongings.
== END 2018-08-18 10:16 | disposition home or self-care (01) | DRG 483 ==
PROVIDERS: Admitting Provider Orthopaedic Surgery; PCP Family Medicine; Visit Provider Orthopaedic Surgery
PROC: 0RRK0JZ Replacement of Left Shoulder Joint with Synthetic Substitute, Open Approach (ICD-10-PCS; CPT 23472; principal; 2018-08-17 07:45)
DX: M19.012 Primary osteoarthritis, left shoulder (principal); Z96.611 Presence of right artificial shoulder joint; G47.33 Obstructive sleep apnea (adult) (pediatric)
CPT/HCPCS: 36415; 73020; 85014; 85018; 97161; 97530; C1776; J0330; J0690; J1100; J2250; J2405; J2704; J3010

== ENCOUNTER → 2023-12-24 08:29 | Outpatient (CLI) | payer MEDICARE, OTHER, SELFPAY ==
[2018-08-17 10:55] VITALS: BMI 33.4
--- NOTE | 2023-12-24 08:32 | DI.CT.S_ITS ---
PROCEDURE: CT IVP A/P W/WO INDICATIONS: eval kidney stones, flank pain TECHNIQUE: Optional 5 mm thick noncontrast images acquired from the diaphragm to the symphysis pubis. After the administration of intravenous contrast, 5 mm thick images acquired from the diaphragm to the symphysis pubis after a 10-minute delay. 2 mm thick coronal and sagittal reformats were then performed of the kidneys and ureters. For radiation dose reduction, the following was used: automated exposure control, adjustment of mA and/or kV according to patient size. COMPARISON: None. FINDINGS: Image quality: Diagnostic Lower chest: Scattered scarring and atelectasis at the lung bases. Coronary calcifications. Liver: Unremarkable Gallbladder and biliary system: Absent, nondilated Pancreas: No ductal dilation Spleen: Nonenlarged Adrenals: No discrete nodules Kidneys: No solid mass. Multiple renal calculi on the left, the largest in the renal pelvis measures up to 1.6 x 1.2 x 1.1 cm, Hounsfield units over 1000. Surrounding fat stranding and mild pelviectasis are seen. Scattered renal cysts are present. Subcentimeter lesions are too small to characterize, probably also cysts. Right parapelvic cysts are also present. Vessels and lymph nodes: The main portal vein is patent. No abdominal aortic aneurysm or pathologic lymph nodes by size criteria. Bowel and peritoneum: No evidence of small bowel obstruction. No pathologic ascites. 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 Body wall: Postsurgical changes in the anterior body wall. Small left greater right fat containing inguinal hernias. Pelvis: Unremarkable bladder. Rectal suture lines. Pre sacral soft tissue thickening is present, favored to represent postsurgical changes in the setting of prior rectal surgery. No definite calcified bladder stone. The prostate is not well assessed on this study, no gross abnormality. Bones: No acute or suspicious osseous finding. There are degenerative changes. IMPRESSION: No solid renal mass. Multiple left-sided renal calculi, the largest measuring up to 1.6 cm in the left renal pelvis with mild surrounding pelviectasis and edematous fat stranding. Correlate urinalysis for any superimposed inflammation or infection. Consider cystoscopy to further evaluate the lower tracts if clinically indicated in the setting of hematuria. Other findings above. Dictated by: Mohit Vilchis M.D. on 12/24/2023 at 15:05 Approved by: Mohit Vilchis M.D. on 12/24/2023 at 15:10
[2023-12-24 08:55] LABS: Estimated Glomerular Filt Rate > 60 mL/min (>60)
[2023-12-24 09:15] LABS: Add Manual Diff / Slide Review NO; Basophils Absolute Auto 0 /uL (0-100); Basophils Percent Auto 0.6 % (0-2); Eosinophils Absolute Auto 200 /uL (0-450); Eosinophils Percent Auto 2.5 % (2-4); Hemoglobin 15.6 g/dL (13.5-17.5); Lymphocytes Absolute Auto 2000 /uL (1100-4500); Lymphocytes Percent Auto 30.8 % (25-40); Mean Corpuscular HGB Conc 33.8 % (30-36); Mean Corpuscular Hemoglobin 31.3 PG (26-34); Mean Corpuscular Volume 92.5 fL (80-100); Monocytes Absolute Auto 800 /uL (0-900); Monocytes Percent Auto 11.7 % (3-14); Neutrophils Absolute Auto 3600 /uL (1500-7000); Neutrophils Percent Auto 54.4 % (50-75); Platelet Count 209 X10^3/uL (150-400); Red Blood Cell Count 4.97 X10^6/uL (4.5-5.9); Red Cell Distribution Width 14.2 % (11.6-14.8); White Blood Cell Count 6.6 X10^3/uL (4.5-11.0)
[2023-12-24 09:43] LABS: Alanine Aminotransferase 25 IU/L (<50); Albumin Globulin Ratio 1.4 (1.0-2.8); Alkaline Phosphatase 77 U/L (38-126); Aspartate Aminotransferase 30 IU/L (17-59); BUN Creatinine Ratio 15.2 (6-22); Bilirubin Total 0.7 mg/dL (0.2-1.3); Blood Urea Nitrogen 16 mg/dL (9-20); Calcium 9.1 mg/dL (8.4-10.2); Carbon Dioxide 30 mmol/L (22-32); Chloride 101 mmol/L (98-107); Cholesterol 165 mg/dL (140-199); Estimated Glomerular Filt Rate > 60 mL/min (>60); Globulin 2.9 g/dL (1.7-4.1); Glucose 102 mg/dL (80-110); HDL Cholesterol 59 mg/dL (40-60); HEMOLYSIS < 15 (0-50); LDL Cholesterol Calculated 89 mg/dL (<100); Potassium 4.6 mmol/L (3.4-5.1); Sodium 137 mmol/L (137-145); Total Protein 6.9 g/dL (6.3-8.2); Triglycerides 84 mg/dL (35-150)
== END ==
PROVIDERS: Radiology Diagnostic Radiology; PCP Family Medicine; Referring Provider Family Medicine; Visit Provider Family Medicine
DX: N20.0 Calculus of kidney (principal); N28.1 Cyst of kidney, acquired; R10.9 Unspecified abdominal pain; Z12.5 Encounter for screening for malignant neoplasm of prostate; K40.20 Bilateral inguinal hernia, without obstruction or gangrene, not specified as recurrent; G47.33 Obstructive sleep apnea (adult) (pediatric); Z87.442 Personal history of urinary calculi; Z90.49 Acquired absence of other specified parts of digestive tract
CPT/HCPCS: 36415; 74178; 80053; 80061; 82565; 85025; G0103; Q9967

== ENCOUNTER 2024-03-09 10:11 | Day surgery (SDC) | payer MEDICARE, SELFPAY ==
[2018-08-17 10:55] VITALS: BMI 33.4
[2024-01-14 09:59] VITALS: BMI 33.4
--- NOTE | 2024-03-09 | PATH_ITS ---
[facility] Accession Number: [id number] No. of containers..01 Tissue . 01 Material submitted: . colon - ASCENDING POLYP . 01 Diagnosis: ASCENDING COLON POLYP: Sessile serrated adenoma. MRV 03/13/2024 1241 Local . 01 Electronically signed: . Tee Hawthorne MD, PhD, Pathologist NPI- [id number] . 01 Gross description: . Received in formalin with two patient identifiers and ascending colon polyp, is a single guillory soft tissue fragment, 0.9 cm in greatest dimension, submitted in A1. ([id number]) /MRV 03/10/2024 1531 Local . 01 Pathologist provided ICD-10: D12.2 . 01 CPT . 516514 Specimen Comment: A courtesy copy of this report has been sent to [phone] Performed at: [address] [facility] [id number] MD Dustin Adames MD Phone: [phone]
[2024-03-09 10:23] VITALS: BP 165/88; PULSE 92; RESP 16; TEMP 36.1; O2SAT 98
[2024-03-09] MEDS: SODIUM CHLORIDE 0.9% 1,000 ML 150 ML IV (10:28)
--- NOTE | 2024-03-09 11:15 | PM.HP.1 ---
History of Present Illness History of Present Illness Date Patient Seen: 03/09/24 Time Patient Seen: 11:16 Chief complaint: [facility] [place] [facility] [place] Narrative: Nilay is a 73 year old man here for a colonoscopy. His last one was in 2018. He has had a partial colectomy for a pre-cancerous polyp years ago. 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 Son Kidney stones Brother Diabetes mellitus Colorectal cancer Social History household members: spouse Smoking Status: Never smoker alcohol intake: never substance use type: does not use Meds Home Medications and Allergies Home Medications Medication Instructions Recorded Confirmed Type Respironics Dreamstation CPAP #1 ea 07/28/18 12/21/23 History sodium,potassium,mag sulfates 17.5 See Rx Instructions PO .COMPLEX 01/25/24 Rx gram-3.13 gram-1.6 gram oral soln #354 mL (Suprep Bowel Prep Kit) Allergies Allergy/AdvReac Type Severity Reaction Status Date / Time No Known Drug Allergies Allergy Verified 03/09/24 10:22 Exam Vital Signs (past 8 hours): - 03/09/24 10:23 Temperature 97 F L Pulse Rate 92 H Respiratory Rate 16 Blood Pressure 165/88 H Pulse Oximetry 98 Oxygen Delivery Method Room Air Oxygen Delivery Method Room Air Const General: No acute distress Resp Effort & Inspection: normal respiratory effort Assessment & Plan Assessment and plan (1) History of colon polyps: Status: Acute Plan Colonoscopy Time-Based Coding :: [TOTAL MINUTES] spent with patient and on the chart (including review of chart, obtaining history, exam, reviewing outside data, placing orders, documenting exam and treatment plan, and counseling patient) on [DATE].
--- NOTE | 2024-03-09 11:48 | PM.OP.COLON ---
Operative Date/Time/Diagnoses Date of procedure: 03/09/24 Time of procedure: 11:48 Pre-op diagnosis: History of colon polyps Post-op diagnosis: same Procedure & Clinicians Study performed: Colonoscopy Same procedure as scheduled: Yes Surgeon: Elvis Duncan Procedure Notes Procedure in detail: Surgeon: Elvis Duncan MD Anesthesia: uRkhsana Coronado DO Procedure: The patient was brought to the endoscopy suite, placed in left lateral decubitus position. The patient was connected to monitoring devices. A time-out was performed. Sedation was administered. Once the patient was adequately sedated, a digital rectal exam was performed and was normal. The scope was then inserted and advanced to the cecum where the appendiceal orifice was identified and photographed. The scope was then slowly withdrawn over greater than 6 minutes. The mucosa was thoroughly inspected. There was a 7 mm polyp in the ascending colon removed with a cold snare. The anastomosis was noted in the mid to upper rectum. The scope was retroflexed in the rectum. No other abnormalities were seen. The scope was straightened and removed. The patient was awakened and brought to recovery. Scope withdrawal time: 6 minutes Sedation time: 13 minute EBL: 2 mL Findings: Ascending colon polyp Post-procedure Disposition: PACU
[2024-03-09 11:50] VITALS: BP 125/69; PULSE 77; RESP 21; TEMP 36.4; O2SAT 97
[2024-03-09 11:55] VITALS: BP 142/73; PULSE 80; RESP 14; O2SAT 96
[2024-03-09 11:58] VITALS: BP 124/72; PULSE 75; RESP 14; TEMP 36.7; O2SAT 95
== END 2024-03-09 12:17 | disposition home or self-care (01) ==
PROVIDERS: PCP Family Medicine; Referring Provider Surgery; Visit Provider Surgery
PROC: 0DJD8ZZ Inspection of Lower Intestinal Tract, Via Natural or Artificial Opening Endoscopic (ICD-10-PCS; CPT 45378; principal; 2024-03-09 11:15)
DX: Z12.11 Encounter for screening for malignant neoplasm of colon (principal); D12.2 Benign neoplasm of ascending colon; Z86.0101 Personal history of adenomatous and serrated colon polyps; Z80.0 Family history of malignant neoplasm of digestive organs; Z90.49 Acquired absence of other specified parts of digestive tract; G47.33 Obstructive sleep apnea (adult) (pediatric)
CPT/HCPCS: 45385; J2704

== ENCOUNTER → 2024-04-12 11:00 | Outpatient (CLI) | payer MEDICARE, SELFPAY ==
[2024-01-14 09:59] VITALS: BMI 33.4
== END ==
PROVIDERS: PCP Family Medicine; Visit Provider Urology
DX: R39.9 Unspecified symptoms and signs involving the genitourinary system (principal)
CPT/HCPCS: 87086